=== PATIENT | female | born 1960 | race Caucasian/White ===

== ENCOUNTER → 2020-11-09 | Outpatient (CLI) | payer BC | LOC: ECHO 11:50 → NM 13:00 | DX: R07.9 Chest pain, unspecified (principal); R06.02 Shortness of breath; I10 Essential (primary) hypertension; R42 Dizziness and giddiness | CPT/HCPCS: ECHO; 78452; 93017; 93306; A9502; J2785 ==

== ENCOUNTER → 2020-12-19 | Outpatient (CLI) | payer BC | LOC: LAB 10:04 | DX: R06.02 Shortness of breath (principal) | CPT/HCPCS: 36415; 85379 ==

== ENCOUNTER → 2020-12-21 | Outpatient (CLI) | payer BC ==
[2020-12-21 09:36] LABS: BUN/CREATININE RATIO 21 (0-10)
== END ==
LOC: CT 08:42
PROVIDERS: Nurse Practitioner Family
DX: R79.89 Other specified abnormal findings of blood chemistry (principal); I25.10 Atherosclerotic heart disease of native coronary artery without angina pectoris; K80.20 Calculus of gallbladder without cholecystitis without obstruction
CPT/HCPCS: 36415; 80048; Q9967

== ENCOUNTER → 2021-01-09 | Outpatient (CLI) | payer BC | LOC: HEART 5 08:46 | DX: R06.02 Shortness of breath (principal) | CPT/HCPCS: 94010 ==

== ENCOUNTER → 2021-08-27 | Outpatient (CLI) | payer BC | LOC: KOH-I 13:45 | DX: M50.122 Cervical disc disorder at C5-C6 level with radiculopathy (principal); M47.22 Other spondylosis with radiculopathy, cervical region | CPT/HCPCS: 72040 ==

== ENCOUNTER → 2021-09-05 | Outpatient (CLI) | payer BC | LOC: KOH-I 09:50 | DX: M50.121 Cervical disc disorder at C4-C5 level with radiculopathy (principal); M48.02 Spinal stenosis, cervical region; M47.22 Other spondylosis with radiculopathy, cervical region | CPT/HCPCS: 72141 ==